=== PATIENT | female | born 1990 | race Two or more races ===

== ENCOUNTER 2017-11-10 19:37 | Observation (INO) | payer SELFPAY ==
[2017-11-10] MEDS ORDERED: PREN-96 PO (20:20)
[2017-11-10 20:39] LABS: Urine Bacteria MOD /hpf (None Seen); Urine Blood Negative /uL (Negative); Urine Specific Gravity 1.021 (1.001-1.035); Urine WBC 19 /hpf (0 - 5)
[2017-11-10 20:48] LABS: Alcohol, Urine < 3.0 mg/dL (0-5); Amphetamine Screen, Urine NEGATIVE (NEGATIVE); Barbiturate Scree,Urine NEGATIVE (NEGATIVE); Benzodiazephine Screen, Urine NEGATIVE (NEGATIVE); Cannabinoid Screen, Urine NEGATIVE (NEGATIVE); Cocaine Screen, Urine NEGATIVE (NEGATIVE); Opiate Scree,Urine NEGATIVE (NEGATIVE); Phencyclidine Screen, Urine NEGATIVE (NEGATIVE)
[2017-11-12 06:05] LABS: RPR Non Reactive (Non Reactive)
[2017-11-12 10:07] LABS: Rubella Antibodies, IgG 4.23 index (Immune >0.99)
== END 2017-11-10 22:01 | disposition home or self-care (01) | DRG 781 ==
LOC: LDRP 19:37
PROVIDERS: ADMIT Obstetrics & Gynecology; ATTEND Obstetrics & Gynecology
DX: O62.9 Abnormality of forces of labor, unspecified (principal); O26.893 Other specified pregnancy related conditions, third trimester; N89.8 Other specified noninflammatory disorders of vagina; Z86.32 Personal history of gestational diabetes; Z87.891 Personal history of nicotine dependence; Z3A.36 36 weeks gestation of pregnancy
CPT/HCPCS: 36415; 59025; 76805; 80307; 81001; 81002; 83036; 86592; 86703; 86762; 86850; 86900; 86901; 87081; 87086; 87340; G0378

== ENCOUNTER 2017-11-27 12:14 | Inpatient (IN) | payer MEDICAID ==
[~2017-11-27] VITALS: Ht 152.4 cm; Wt 82.6 kg
[~2017-11-27 12:14] MED LIST: PREN-96 PO
[2017-11-27] MEDS ORDERED: LACTATED RINGER'S 1,000 ML IV SCH (12:25)
[2017-11-27] MEDS ORDERED: LACT. RINGERS/OXYTOCIN 20UNITS 1,000 ML IV SCH (12:25)
[2017-11-27] MEDS ORDERED: WITCH HAZEL-GLYCERIN PAD TOP PRN (12:30)
[2017-11-27] MEDS ORDERED: NALBUPHINE HCL 10 MG/1ml INJECTION IV PRN (12:30)
[2017-11-27] MEDS ORDERED: LIDOCAINE 2% (LOCAL ANESTH.) PF 5ml SDV ID ONE (12:30)
[2017-11-27] MEDS ORDERED: PENICILLIN G POT 5MIL/D5 50ML 50 ML IV ONE ×2 (12:30→12:44)
[2017-11-27] MEDS ORDERED: DERMOPLAST 60ML BOTTLE TOP PRN (12:30)
[2017-11-27] MEDS ORDERED: PHISODERM TOP SOLN 240ML BTL TOP PRN (12:30)
[2017-11-27 13:48] LABS: Basophils # (auto) 0.1 uL; Eosinophils # (auto) 0 uL; Eosinophils % (auto) 0.3 % (0.0-7.0); Hemoglobin 9.7 g/dL (12.2-16.2); Lymphocytes # (auto) 2.2 uL; Monocytes # (auto) 0.4 uL
[2017-11-27 13:50] LABS: Basophils % (auto) 0.6 % (0.0-2.0); Hematocrit 30.4 % (36.0-46.0); Lymphocytes % (auto) 25.2 % (10.0-50.0); Mean Corpuscular Hemoglobin 23.1 pg (28.0-32.0); Mean Corpuscular Hgb Conc. 31.9 g/dL (32.0-36.0); Mean Corpuscular Volume 72.4 fL (80.0-100.0); Monocytes % (auto) 4.6 % (0.0-12.0); Neutrophils # (auto) 6.2 uL; Neutrophils % (auto) 69.3 % (37.0-80.0); Nucleated Red Blood Cells % 0.2 %; Platelet Count (auto) 184 10^3/uL (140-450); White Blood Cell 8.9 10^3/uL (4.4-10.8)
[2017-11-27 14:02] LABS: INR 0.87 (0.9-1.15); Partial Thromboplastin Time 22.6 sec (23.78-33.04); Prothrombin Time 9.4 sec (9.27-12.13)
[2017-11-27 14:19] LABS: Albumin 2.4 g/dL (3.4-5.0); BUN/Creatinine Ratio 16.7; Calcium 8.1 mg/dL (8.5-10.1); Potassium 3.8 mmol/L (3.5-5.1)
[2017-11-27 14:22] LABS: Bilirubin, Total 0.2 mg/dL (0.2-1.0); Total Protein 6.8 g/dL (6.4-8.2)
[2017-11-27 14:35] LABS: Urine Bacteria MOD /hpf (None Seen); Urine Blood Negative /uL (Negative); Urine Specific Gravity 1.009 (1.001-1.035); Urine WBC 13 /hpf (0 - 5)
[2017-11-27 14:43] LABS: Alcohol, Urine < 3.0 mg/dL (0-5); Amphetamine Screen, Urine NEGATIVE (NEGATIVE); Barbiturate Scree,Urine NEGATIVE (NEGATIVE); Benzodiazephine Screen, Urine NEGATIVE (NEGATIVE); Cannabinoid Screen, Urine NEGATIVE (NEGATIVE); Cocaine Screen, Urine NEGATIVE (NEGATIVE); Opiate Scree,Urine NEGATIVE (NEGATIVE); Phencyclidine Screen, Urine NEGATIVE (NEGATIVE)
[2017-11-27] MEDS: IBUPROFEN 600 MG TAB PO PRN ×2 (16:13→20:33)
[2017-11-27] MEDS ORDERED: PENICILLIN G POTASSIUM 2,500,000 UNITS in D5W 5% 50 ML IV SCH (16:30)
[2017-11-27 23:00] VITALS: BP 128/80
[2017-11-28] MEDS: IBUPROFEN 600 MG TAB PO PRN ×2 (01:34→11:40)
[2017-11-28 03:30] VITALS: BP 122/74
[2017-11-28 06:55] VITALS: BP 128/88
[2017-11-28] MEDS ORDERED: DOCUSATE CALCIUM 240 MG CAP PO SCH (10:00)
[2017-11-28 11:00] VITALS: BP 120/69
[2017-11-30 05:06] LABS: RPR Non Reactive (Non Reactive)
[2017-11-30 13:06] LABS: Rubella Antibodies, IgG 3.95 index (Immune >0.99)
== END 2017-11-28 14:10 | disposition home or self-care (01) | DRG 560 ==
LOC: OBSVTOIN 12:14 → LDRP 12:14 → CENTRAL 22:19
PROVIDERS: ADMIT Specialist; ATTEND Specialist
PROC: 10E0XZZ Delivery of Products of Conception, External Approach (ICD-10-PCS; principal; 2017-11-27)
PROC: 0KQM0ZZ Repair Perineum Muscle, Open Approach (ICD-10-PCS; 2017-11-27)
DX: O24.420 Gestational diabetes mellitus in childbirth, diet controlled (principal); O70.1 Second degree perineal laceration during delivery; Z37.0 Single live birth; Z3A.39 39 weeks gestation of pregnancy
CPT/HCPCS: 36415; 59025; 59409; 80053; 80307; 81001; 81002; 82962; 85025; 85610; 85730; 86592; 86762; 86850; 86900; 86901; 87340; 96365; 96366; J2001; J2540; J2590; J7060